=== PATIENT | female | born 1980 | race African-American/Black ===

== ENCOUNTER 2022-05-21 13:45 | Emergency (ER) | payer OTHER, SELFPAY ==
[2022-05-21] VITALS (12 sets, daily range): BP systolic 100–111; BP diastolic 62–79; PULSE 71–107; RESP 14–20; TEMP 36.8; O2SAT 99–100
--- NOTE | ~2022-05-21 | XR_ITS ---
EXAMINATION: XR chest 2V Exam Date/Time: 05/21/2022 15:11 CDT HISTORY: body aches, louise, mid chest pain onset last P.M. Comparison: 01/06/2022. RESULT: Lines, tubes, and devices: None. Lungs and pleura: Clear. Cardiomediastinal silhouette: Stable. Other: No acute osseous or upper abdominal finding. IMPRESSION: No acute cardiopulmonary process. Reviewed, dictated and finalized at location K.
--- NOTE | 2022-05-21 14:38 | ED.HA ---
HPI - Headache General Chief Complaint: Headache Stated Complaint: dizzy/ROJO/body aches Time Seen by Provider: 05/21/22 14:13 History of Present Illness HPI Narrative: Patient is a 41-year-old female with a history of RA, lupus anticoagulant on Xarelto presenting with a headache. Patient states that starting yesterday morning she developed a dull headache. States that it has been progressively worsening since that time. States that she has taken TheraFlu, Tylenol, oxycodone without improvement. Denies focal numbness or weakness, speech changes, vision changes. She also complains of diffuse body aches starting last night. She denies fevers, chest pain, shortness of breath, cough, abdominal pain, nausea or vomiting, diarrhea, dysuria, urinary frequency, leg swelling. Related Data Allergies Allergy/AdvReac Type Severity Reaction Status Date / Time hydromorphone Allergy Anaphylaxis Verified 05/21/22 14:11 Review of Systems Review of Systems: All systems reviewed & are unremarkable except as noted in HPI and below Exam Narrative: GENERAL: Well-appearing, well-nourished, and in no acute distress. HEAD: Normocephalic, atraumatic. EYES: PERRLA and EOMI. ENT: Nares clear, no rhinorrhea or epistaxis. Mucous membranes moist. NECK: Supple. CHEST: Clear to auscultation. No respiratory distress. HEART: Regular rate and rhythm. Normal peripheral pulses. ABDOMEN: Soft, nontender, nondistended EXTREMITIES: Normal range of motion. No edema. SKIN: Warm, dry, no rash. NEURO: No focal deficits. Alert and oriented x3. 5/5 strength in all extremities, no sensory deficits, no facial droop PSYCH: Normal mood and affect. Course Vital Signs Vital signs: Vital Signs Temperature 98.3 F 05/21/22 13:48 Pulse Rate 107 H 05/21/22 13:48 Respiratory Rate 17 05/21/22 13:48 Blood Pressure 109/62 05/21/22 13:48 Pulse Oximetry 99 05/21/22 13:48 Oxygen Delivery Room Air 05/21/22 13:48 Temperature 98.3 F 05/21/22 13:48 Pulse Rate 76 05/21/22 19:00 Respiratory Rate 18 05/21/22 19:00 Blood Pressure 100/66 05/21/22 19:00 Pulse Oximetry 100 05/21/22 19:00 Oxygen Delivery Room Air 05/21/22 13:48 MDM - Headache MDM Narrative Medical decision making narrative: 41-year-old female presenting with 1 day of headache and diffuse body aches. Vitals within normal limits. Exam is unremarkable. Neurologically intact. Plan for fluids, IV pain meds, labs. Do not feel imaging is warranted at this time given the lack of red flag symptoms and normal neurologic exam. Blood work is unremarkable. On reevaluation, the patient states that her pain has resolved. States she feels 100% improved. She is asking to go home which I think is appropriate. 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 Advised adequate fluid intake and Tylenol for pain control. Appropriate return precautions were given. Patient voiced understanding and is agreeable with plan. Discharged in stable condition. Differential Diagnosis Differential diagnosis: Likely migraine, tension headache, headache and other (Viral URI, dehydration) Lab Data 05/21/22 14:46 05/21/22 14:46 Labs: Lab Results 05/21/22 05/21/22 05/21/22 Range/Units 14:46 14:46 14:46 WBC 8.0 (4.5-10.0) K/mm3 RBC 4.94 (4.2-5.4) M/mm3 Hgb 11.3 L (12.0-15.0) g/dL Hct 34.9 L (37.0-47.0) % MCV 70.6 L (80-100) fl MCH 22.9 L (26-34) pg MCHC 32.4 (32-36) g/dl RDW 15.4 H (11.5-14.5) % Plt Count 209 (150-375) k/mm3 MPV 9.0 (7.4-10.4) fl Immature Gran % (Auto) 0.3 (0-0.5) % Neut % (Auto) 41.9 L (45.5-73.1) % Lymph % (Auto) 47.6 H (18.3-44.2) % [place] % (Auto) 9.5 H (2.6-8.5) % Eos % (Auto) 0.4 (0-4.4) % Baso % (Auto) 0.3 (0.2-1.2) % Lymph # (Auto) 3.79 H (0.9-3.2) K/mm3 [place] # (Auto) 0.8 H (0.1-0.6) K/mm3 Eos # (Auto) 0.0 (0-0.3) K/mm3 Baso # (Aut
[2022-05-21] MEDS: SODIUM CHLORIDE 0.9% IV 1,000 ML 999 ML IV CONT ×2 (14:47→14:48)
[2022-05-21 15:00] LABS: Basophils Percent Auto 0.3 % (0.2-1.2); Eosinophils Percent Auto 0.4 % (0-4.4); Hematocrit 34.9 % (37.0-47.0); Hemoglobin 11.3 g/dL (12.0-15.0); Immature Granulocyte Absolute 0.02 K/mm3 (0.00-0.031); Immature Granulocyte Percent A 0.3 % (0-0.5); Lymphocytes Absolute Auto 3.79 K/mm3 (0.9-3.2); Lymphocytes Percent Auto 47.6 % (18.3-44.2); Mean Corpuscular HGB Conc 32.4 g/dl (32-36); Mean Corpuscular Hemoglobin 22.9 pg (26-34); Mean Corpuscular Volume 70.6 fl (80-100); Monocytes Absolute Auto 0.8 K/mm3 (0.1-0.6); Monocytes Percent Auto 9.5 % (2.6-8.5); Neutrophils Absolute Auto 3.3 K/mm3 (1.3-6.7); Neutrophils Percent Auto 41.9 % (45.5-73.1); Platelet Count Result 209 k/mm3 (150-375); Red Blood Count 4.94 M/mm3 (4.2-5.4); Red Cell Distribution Width 15.4 % (11.5-14.5)
[2022-05-21 15:22] LABS: Alanine Aminotransferase 26 U/L (6-35); Albumin Level 3.7 g/dL (3.5-5.1); Alkaline Phosphatase 69 U/L (38-126); Anion Gap 3 mmol/L (8-16); Aspartate Amino Transferase 27 U/L (14-36); Bilirubin,Total 0.4 mg/dL (0.2-1.3); Blood Urea Nitrogen 14 mg/dL (7-17); Calcium 8.6 mg/dL (8.4-10.2); Carbon Dioxide 25 mmol/L (22-30); Chloride 109 mmol/L (98-107); Estimated CRCL calculation 115 ml/min; Estimated Glomerular Filt Rate > 60; Glucose 105 mg/dL (65-110); Potassium 3.8 mmol/L (3.4-5.0); Sodium 137 mmol/L (137-145)
[2022-05-21] MEDS: KETOROLAC 15 MG/ML VIAL (*BKC) IV PUSH (15:22)
[2022-05-21 15:35] LABS: Platelet Estimate Adequate (Adequate)
[2022-05-21 15:36] LABS: Anisocytosis 1+ (NORMAL); Microcytosis 1+ (NORMAL)
[2022-05-21 15:37] LABS: Hypochromasia 1+ (NORMAL)
[2022-05-21 15:38] LABS: Schistocytes None Seen (NORMAL)
[2022-05-21 15:49] LABS: Influenza A QL RT-PCR Negative (Negative); Influenza B QL RT-PCR Negative (Negative); RSV RNA, RT-PCR Negative (Negative); SARS-CoV-2 RNA PCR Negative
== END 2022-05-21 19:01 | disposition home or self-care (01) ==
PROVIDERS: Emergency Provider Emergency Medicine; PCP Family Medicine
DX: R51.9 Headache, unspecified (principal); M06.9 Rheumatoid arthritis, unspecified; M32.9 Systemic lupus erythematosus, unspecified; Z20.822 Contact with and (suspected) exposure to COVID-19
CPT/HCPCS: 36415; 71046; 80053; 85025; 87637; 96361; 96365; 96375; 99284; J0131; J1885; J7030